=== PATIENT | male | born 1945 | race Caucasian/White ===

== ENCOUNTER 2017-03-18 07:58 | Day surgery (SDC) | payer OTHER ==
[2017-03-14 14:07] VITALS: BMI 24.1
[~2017-03-18 07:58] MED LIST: ALPRAZolam 0.25 MG TAB PO PRN; ALPRAZolam 0.5 MG TAB PO PRN; ASPIRIN 325 MG TAB PO STA; ATORVASTATIN 80 MG TAB PO STA; NITROGLYCERIN SL TABS 0.4 MG TAB SUBLINGUAL PRN; SODIUM CHLORIDE 0.9% 1,000 ML in EMPTY BAG 1 BAG IV ONE
[2017-03-18] MEDS ORDERED: SODIUM CHLORIDE 0.9% 1,000 ML IV ONE (08:13)
[2017-03-18] MEDS ORDERED: fentaNYL (PF) 50 MCG/ML 2 ML AMP ONE (09:12)
[2017-03-18] MEDS ORDERED: MIDAZOLAM 2 MG/2 ML VIAL ONE (09:12)
[2017-03-18] MEDS ORDERED: fentaNYL (PF) 50 MCG/ML 2 ML AMP IV ONE (09:15)
[2017-03-18] MEDS ORDERED: MIDAZOLAM 2 MG/2 ML VIAL IV ONE (09:16)
[2017-03-18] MEDS ORDERED: LIDOCAINE 2% INJ 20 MG/ML (20 ML MDV) ONE (09:17)
[2017-03-18] MEDS ORDERED: LIDOCAINE 2% INJ 20 MG/ML SQ ONE (09:20)
[2017-03-18] MEDS ORDERED: RX INFO: IV CONTRAST WAS GIVEN 1 EACH MISC MISCELLANE PRN (09:59)
--- NOTE | 2017-03-18 09:59 | P.PCN ---
Date of Procedure: 03/18/17 Preoperative Diagnosis: Angina pectoris, abnormal EKG Postoperative Diagnosis: Significant 2 vessel disease Procedure(s) Performed: Left heart catheterization with left ventriculography Description of Procedure: HISTORY: This is a 71-year-old gentleman with history of mixed hyperlipidemia, smoking who has been having burning epigastric and midsternal chest pain. [facility] and [facility] had previous stress tests and echocardiograms. 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 Patient is advised to have a cardiac catheterization because of ongoing symptoms and abnormal EKG. CONSENT:I have discussed the risks, benefits and alternative therapies for the above-mentioned procedure and for both sedation/analgesia as well as necessary blood product administration, if indicated, as they pertain to this patient. The patient has indicated understanding and acceptance of the risks and procedures discussed. PROCEDURE: Patient was brought to the lab in a fasting state. Patient was given some IV sedation. The right groin is infiltrated with lidocaine and right femoral artery was entered using Seldinger technique. A 6-Zimbabwean catheter was left in place and selective coronary arteriography and left ventriculography was performed. Patient tolerated the procedure well. No immediate complications were noted and patient was transferred to [facility] in a stable condition. Patient is found to have significant 2 vessel disease. Patient is waiting to be evaluated by Dr. JOSIE Bartlett for possible percutaneous intervention HEMODYNAMICS: The aortic pressure is 110/70. Left ventricle end-diastolic pressure is 12. There was no gradient across the aortic valve SELECTIVE CORONARY ARTERIOGRAPHY: LEFT MAIN: Normal length. Heavily calcified THE LEFT ANTERIOR DESCENDING CORONARY ARTERY: Heavily calcified vessel with significant disease in the midportion at the origin of the major diagonal branch. The LAD provides collaterals to the RCA. THE LEFT CIRCUMFLEX AND IS CORONARY ARTERY: Moderate caliber vessel and free of occlusive disease THE RIGHT CORONARY ARTERY: This is a dominant vessel with multiple lesions in the proximal mid and distal portions. The lesions appear to be about 95-99%. There is a sluggish filling of the PDA and PLV branches which are good in caliber LEFT VENTRICULOGRAPHY: There is a severe hypokinesis of the inferior wall including the apex. The ejection fraction close to 30%. FINAL IMPRESSION: Significant 2 vessel disease involving the mid LAD and multiple lesion in the RCA in the proximal mid and distal portions PLAN: Continuation maximal medical therapy. Revascularization either percutaneously or bypass surgery because of ongoing symptoms. PROGNOSIS: Guarded
[2017-03-18] MEDS ORDERED: SODIUM CHLORIDE 0.9% 1,000 ML IV SCH (10:00)
[2017-03-18] MEDS ORDERED: IOHEXOL 350 MG/ML 100 ML BOTTLE INJ ONE (10:01)
[2017-03-18 14:01] VITALS: RESP 16
[2017-03-18 20:24] VITALS: BP 125/68; PULSE 60; TEMP 97.7
[2017-03-19] MEDS ORDERED: ISOSORBIDE MONONITRATE ER 30 MG TAB.ER.24H PO SCH (09:00)
== END 2017-03-18 21:20 | disposition home or self-care (01) ==
LOC: CATHCVL 07:58 → 3OBS 09:40 → CATHCVL 21:20
PROVIDERS: ATTEND Internal Medicine Cardiovascular Disease
DX: I25.119 Atherosclerotic heart disease of native coronary artery with unspecified angina pectoris (principal); I25.84 Coronary atherosclerosis due to calcified coronary lesion; E78.2 Mixed hyperlipidemia; I25.2 Old myocardial infarction; K21.9 Gastro-esophageal reflux disease without esophagitis; R00.1 Bradycardia, unspecified; F17.200 Nicotine dependence, unspecified, uncomplicated; Z82.49 Family history of ischemic heart disease and other diseases of the circulatory system; Z79.82 Long term (current) use of aspirin; Z79.899 Other long term (current) drug therapy
CPT/HCPCS: 93458; 99152; 99153; C1894; C1769; J2001; J2250; Q9967; J3010

== ENCOUNTER → 2017-04-02 | Day surgery (SDC) | payer OTHER ==
[2017-04-01 11:41] VITALS: BMI 24.4
[~2017-04-02] MED LIST changes: -ALPRAZolam 0.5 MG TAB PO PRN; +ASPIRIN 325 MG TAB PO ONE; -ASPIRIN 325 MG TAB PO STA; +ATORVASTATIN 80 MG TAB PO ONE; -ATORVASTATIN 80 MG TAB PO STA; +BIVALIRUDIN 250 MG in SODIUM CHLORIDE 0.9% 50 ML IV ONE; +BIVALIRUDIN BOLUS 250 MG/50 ML IV ONE; +HEPARIN SODIUM,PORCINE/D5W PMX 25,000 UNIT in DEXTROSE/WATER 1 500ML.BAG IV ONE; +HYDROmorphone 2 MG/ML 1 ML SYRINGE ONE; +IOHEXOL 350 MG/ML 100 ML BOTTLE INJ ONE; +LIDOCAINE 2% INJ 20 MG/ML (20 ML MDV) ONE; +LIDOCAINE 2% INJ 20 MG/ML SQ ONE; +MIDAZOLAM 2 MG/2 ML VIAL IV ONE; +MIDAZOLAM 2 MG/2 ML VIAL ONE; -NITROGLYCERIN SL TABS 0.4 MG TAB SUBLINGUAL PRN; +VERAPAMIL 2.5 MG/ML 2 ML AMP ONE; +diphenhydrAMINE 50 MG/ML 1 ML VIAL IVP ONE; +diphenhydrAMINE 50 MG/ML 1 ML VIAL ONE
[2017-04-02 06:58] VITALS: BP 131/77; PULSE 52; RESP 16; TEMP 97.5
[2017-04-02] MEDS: VERAPAMIL SYRINGE (5 MG/10 ML) IV ONE ×2 (07:40→08:52)
[2017-04-02] MEDS: HYDROmorphone 2 MG/ML 1 ML SYRINGE IV ONE ×2 (07:50→08:49)
--- NOTE | 2017-04-02 23:43 | PTCA ---
DATE OF SERVICE: 04/02/2017 PROCEDURE: Percutaneous transluminal coronary angioplasty of right coronary artery. PERFORMED BY Dr. Lorenza Bartlett. CLINICAL INFORMATION: Mr. Bean Mendoza is a 71-year-old gentleman with a history of hypertension, hyperlipidemia, and recent cardiac cath performed by Dr. Martinez revealed that the RCA was subtotally occluded with sluggish distal flow. There was also a moderate LAD disease. This was a somewhat difficult flow with a lot of heavy calcification and tortuosity involving the proximal/mid RCA. Patient was seen by me in the office, brought in for the procedure electively, with the understanding that this is a fairly high-risk procedure because of tortuosity, calcification and probable chronic subtotal occlusion. Risks, benefits, options and rationale were explained. PROCEDURE NOTE: Under local anesthesia and strict aseptic precautions, a 6 Albanian introducer was placed in the right radial artery. I used a standard right Xavier guide catheter to cannulate the right coronary artery. This was a 6 Albanian catheter. I tried to advance a BMW wire under fluoroscopy guidance, but I could not cross the wire beyond the distal portion of the lesion. The proximal lesion was crossed easily, but the distal portion where there was a subtotal occlusion of the sluggish flow was unable to be crossed. In the process, patient developed chest pain, and the flow through the RCA seemed to decrease even more, although the flow was sluggish to begin with. Patient received Angiomax bolus and infusion as per protocol. However, I went ahead and advanced a 2.5 caliber, 12 mm length Trek balloon, and with this I gave one inflation. Following inflation his chest pain improved. The flow improved. I switched over to a Whisper wire and tried to advance it, but I had the same difficulty and could not cross the distal aspect of the probable subtotal lesion. I also used a Fine Cross device, and with this I was able to advance the wire just up to the lesion but could not cross it. After multiple attempts, I advised the patient that I would abandon the procedure and send him to [facility]. Hopefully he will have a better approach with a chronic total occlusion type intervention, which will be performed by Dr. Gaytan. I discussed this with the patient. The flow in the RCA had resumed to be the normal level. He was pain-free. The sheath was then very carefully sutured in. Angiomax infusion was stopped, and prior to his transfer he will be started about 20 to 25 minutes later with a heparin drip at 1000 units; however, without bolus. Saturation of the fingers of the right hand was good. Sheath was sutured. Patient received Angiomax during the procedure. A single inflation was given. The vessel remained open with sluggish flow, which was his baseline. He was sent to the extended-care stay unit and he will be transferred by [facility] ambulance to the [facility], and intervention will be performed by an business solutions analyst experienced with [employer] procedures. I discussed the details of the procedure as well as the unsuccessful nature of the procedure with the patient, his and his sister. This was an unsuccessful PCI procedure, and patient was to be transferred to [facility] with the sheath sutured in to the radial site.
== END ==
LOC: CATHCVL 06:41
PROVIDERS: ATTEND Internal Medicine Interventional Cardiology
DX: I25.10 Atherosclerotic heart disease of native coronary artery without angina pectoris (principal); I25.84 Coronary atherosclerosis due to calcified coronary lesion; I10 Essential (primary) hypertension; I77.1 Stricture of artery; R07.9 Chest pain, unspecified; I25.2 Old myocardial infarction; Z82.49 Family history of ischemic heart disease and other diseases of the circulatory system; Z87.891 Personal history of nicotine dependence; E78.2 Mixed hyperlipidemia; Z79.82 Long term (current) use of aspirin; Z79.899 Other long term (current) drug therapy
CPT/HCPCS: 92920; C1769 ×6; C1887 ×2; C1725 ×2; C1894; J2001; J2250; J1170; J1200; Q9967; J1644; J0583

== ENCOUNTER 2017-08-19 22:17 | Observation (INO) | payer OTHER ==
--- NOTE | 2017-08-19 22:26 | ED ---
Chest Pain HPI - General Stated Complaint: chest pain Time Seen by Provider: 08/19/17 22:17 Source: patient, EMS, RN notes reviewed Mode of arrival: EMS - History of Present Illness Initial Comments: Is a 72-year-old male with a history of heart disease 5 stents he states the pain was dull for/10 severity currently about 1 hour prior to admission. He did come in by EMS. He was given 324 mg of aspirin the pain did resolve. He currently is symptom free he did have 2 episodes of brief syncope. No fevers chills nausea vomiting sweats cough or other symptoms . Patient does state this several days ago he did go hunting with his son and grandson and may have overdone it. MD Complaint: chest pain, other - Related Data Home Medications Medication Instructions Recorded Confirmed Isosorbide Mononitrate [Isosorbide 30 mg PO DAILY 03/14/17 08/19/17 Mononitrate ER] Ranitidine HCl [Zantac] 150 mg PO DAILY PRN 03/14/17 08/19/17 Atorvastatin (Unknown Dose) 0.5 tab PO DAILY 08/19/17 08/19/17 Calcium Carbonate [Calcium] 600 mg PO DAILY 08/19/17 08/19/17 Cholecalciferol [Vitamin D3] 1,000 unit PO DAILY 08/19/17 08/19/17 Clopidogrel Bisulfate [Plavix] 75 mg PO DAILY 08/19/17 08/19/17 Metoprolol Tartrate [Lopressor] 12.5 mg PO DAILY 08/19/17 08/19/17 Allergies Allergy/AdvReac Type Severity Reaction Status Date / Time No Known Allergies Allergy Verified 08/19/17 23:07 Review of Systems ROS Statement: Those systems with pertinent positive or pertinent negative responses have been documented in the HPI. ROS Other: All systems not noted in ROS Statement are negative. EKG Findings - EKG Results: EKG: interpreted by KAI, sinus rhythm (Sinus rhythm rate of 59. Interval 156 QRS 128 QT cyst QTc is 472/467 left axis deviation right bundle branch block lateral and inferior evidence of old infarcts no acute changes.) Past Medical History Past Medical History: GERD/Reflux, Hypertension, Myocardial Infarction ([place]) Additional Past Medical History / Comment(s): crohns, see Dr Martinez H&P, hx migraines, sinus congestion, equilibrium problem and ringing in ears Last Myocardial Infarction Date:: 01/2015 History of Any Multi-Drug Resistant Organisms: None Reported Past Surgical History: Appendectomy, Heart Catheterization, Tonsillectomy Additional Past Surgical History / Comment(s): kasey cataracts, Additional Past Anesthesia/Blood Transfusion Reaction / Comment(s): vertigo. mother had some problem with anesthesia-not sure what Smoking Status: Former smoker - Past Family History Mother Family Medical History: No Reported History General Exam - General Exam Comments Initial Comments: This is a well-developed well-nourished awake alert oriented times 3 male General appearance: alert, in no apparent distress Head exam: Present: atraumatic, normocephalic, normal inspection Eye exam: Present: normal appearance, PERRL, EOMI. Absent: scleral icterus, conjunctival injection, periorbital swelling ENT exam: Present: normal exam, mucous membranes moist Neck exam: Present: normal inspection. Absent: tenderness, meningismus, lymphadenopathy Respiratory exam: Present: normal lung sounds bilaterally. Absent: respiratory distress, wheezes, rales, rhonchi, stridor Cardiovascular Exam: Present: regular rate, normal rhythm, normal heart sounds. Absent: systolic murmur, diastolic murmur, rubs, gallop, clicks GI/Abdominal exam: Present: soft, normal bowel sounds. Absent: distended, tenderness, guarding, rebound, rigid Extremities exam: Present: normal inspection, full ROM, normal capillary refill. Absent: tenderness, pedal edema, joint swelling, calf tenderness Back exam: Present: normal inspection Neurological exam: Present: alert, oriented X3, CN II-XII intact Psychiatric exam: Present: normal affect, normal mood Skin exam: Present: warm, dry, intact, normal color. Absent: rash Course Vital Signs 08/19/17 08/19/17 22:24 23:40 Temperature 97.0 F L 97.2 F L Pulse Rate 64 62 Respiratory 18 18 Rate Blood Pressure 111/59 104/52 O2 Sat by Pulse 95 96 Oximetry - Reevaluation(s) Reevaluation #1: 08/19/17 23:42 Patient did complain of recurrent chest pain for/10 severity midsternal no tenderness palpation of the chest wall. Repeat EKG showed sinus rhythm of 58 SC interval 158 QRS duration 126 QT since QTC of 490/41 left axis deviation a bundle-branch block old inferior changes no change from the earlier EKG at 22: 23 PM Chest Pain MDM - MDM I did review the imaging and report no acute findings. Patient did have recurrent chest pain he will be admitted for evaluation of chest pain and unstable angina. I did discuss the case with Dr. Schuster's service Critical Care Time Critical Care Time: Yes Critical Care Time: 31 minutes of critical care time which includes monitoring the EMS run and discussed with paramedics. History physical labs x-rays of the patient reevaluation patient several occasions. Discussed with the patient family. The admitting service admission orders and documentation of the above. Disposition Clinical Impression: Chest pain, Unstable angina pectoris Disposition: ADMITTED IP TO THIS HOSP Condition: Stable Referrals: Nino Izaguirre DO [Primary Care Provider] - 1-2 days
[2017-08-19 22:37] LABS: Basophils % (A) 0 %; CHCM 34.5; Eosinophils # (A) 0.1 k/uL (0-0.7); Eosinophils % (A) 1 %; HCT 42.9 % (39.0-53.0); HDW 2.43; HGB 14.7 gm/dL (13.0-17.5); Luc % (Auto) 1; Lymphocytes # (A) 1.6 k/uL (1.0-4.8); Lymphocytes % (A) 9 %; MCH 32.9 pg (25.0-35.0); MCHC 34.2 g/dL (31.0-37.0); MCV 96.2 fL (80.0-100.0); Mean Platelet Volume 7.4; Monocytes # (A) 0.7 k/uL (0-1.0); Monocytes % (A) 4 %; Neutrophils # (A) 14.1 k/uL (1.3-7.7); Neutrophils % (A) 85 %; RBC 4.46 m/uL (4.30-5.90); RDW 14.5 % (11.5-15.5); WBC 16.5 k/uL (3.8-10.6); WBC (Perox) 17.43
[2017-08-19 22:51] LABS: INR 1.1 (<1.2); Prothrombin Time 10.9 sec (9.0-12.0)
[2017-08-19 22:56] LABS: ALT 54 U/L (21-72); AST 46 U/L (17-59); Alkaline Phosphatase 100 U/L (38-126); Anion Gap 10 mmol/L; Blood Urea Nitrogen 18 mg/dL (9-20); Calcium 9.5 mg/dL (8.4-10.2); Carbon Dioxide 23 mmol/L (22-30); Chloride 104 mmol/L (98-107); Glucose 100 mg/dL (74-99); Magnesium 1.9 mg/dL (1.6-2.3); Non-African American GFR(MDRD) >60 (>60 ml/min/1.73 sqM); Potassium 4.1 mmol/L (3.5-5.1); Sodium 137 mmol/L (137-145); Total Bilirubin 1.4 mg/dL (0.2-1.3); Total Protein 7.4 g/dL (6.3-8.2)
[2017-08-19 23:01] LABS: Creatine Kinase 381 U/L (55-170)
--- NOTE | 2017-08-19 23:09 | XR ---
EXAM: XR Chest, 2 Views CLINICAL HISTORY: Reason: Chest Pain TECHNIQUE: Frontal and lateral views of the chest. COMPARISON: Chest x-ray 05/23/15 FINDINGS: Lungs: Hyperinflated lungs. Minimal left basilar opacities, likely atelectasis. Lungs are otherwise clear Pleural space: Unremarkable. No pneumothorax. Heart: Unremarkable. No cardiomegaly. Mediastinum: Unremarkable. Bones/joints: Unchanged compression deformity of a lower thoracic vertebrae IMPRESSION: 1. Hyperinflated lungs. 2. Minimal left basilar opacities, likely atelectasis.
[2017-08-19 23:13] LABS: Troponin I <0.012 ng/mL (0.000-0.034)
[2017-08-19 23:29] LABS: Creatine Kinase MB 6.6 ng/mL (0.0-2.4)
[2017-08-19] MEDS ORDERED: NITROGLYCERIN OINT 1 INCH/GM PACKET TOPICAL STA (23:39)
[2017-08-19] MEDS ORDERED: HEPARIN SODIUM,PORCINE 5,000 UNIT/ML 1 ML VIAL IV ONE (23:39)
[2017-08-19] MEDS ORDERED: HEPARIN SODIUM,PORCINE/D5W PMX 25,000 UNIT in DEXTROSE/WATER 1 500ML.BAG IV SCH (23:45)
[2017-08-19] MEDS ORDERED: SODIUM CHLORIDE 0.9% 1,000 ML IV SCH (23:45)
[2017-08-19] MEDS ORDERED: NITROGLYCERIN SL TABS 0.4 MG TAB SUBLINGUAL PRN (23:49)
[2017-08-19] MEDS ORDERED: FAMOTIDINE 20 MG TAB PO PRN (23:51)
[2017-08-20 01:12] VITALS: BMI 24.4
[2017-08-20 05:13] LABS: Creatine Kinase 298 U/L (55-170)
[2017-08-20 05:16] LABS: Cholesterol 104 mg/dL (<200); HDL Cholesterol 40 mg/dL (40-60)
[2017-08-20 05:26] LABS: Troponin I <0.012 ng/mL (0.000-0.034)
[2017-08-20 05:28] LABS: Creatine Kinase MB 5.5 ng/mL (0.0-2.4)
[2017-08-20] MEDS ORDERED: NITROGLYCERIN OINT 1 INCH/GM PACKET TOPICAL SCH (06:00)
[2017-08-20] MEDS ORDERED: CHOLECALCIFEROL 1,000 UNIT TAB PO SCH (09:00)
[2017-08-20] MEDS ORDERED: CLOPIDOGREL 75 MG TAB PO SCH (09:00)
[2017-08-20] MEDS ORDERED: ASPIRIN 325 MG TAB PO SCH (09:00)
[2017-08-20] MEDS ORDERED: METOPROLOL TARTRATE 12.5 MG TAB PO SCH (09:00)
[2017-08-20] MEDS ORDERED: ISOSORBIDE MONONITRATE ER 30 MG TAB.ER.24H PO SCH (09:00)
[2017-08-20] MEDS ORDERED: CALCIUM CARBONATE 500 MG CHEWABLE PO SCH (09:00)
[2017-08-20] MEDS ORDERED: ISOSORBIDE MONONITRATE ER 15 MG TAB PO SCH (09:45)
[2017-08-20] MEDS ORDERED: LOSARTAN 25 MG TAB PO SCH (09:45)
--- NOTE | 2017-08-20 09:45 | P.CRDCN ---
History of Present Illness History of present illness: Patient interviewed and examined Admitted with syncope, 2 spells suggestive of neurocardiogenic syncope. Associated with nausea and sweating brief and people witnessed his episode and did not say that he had any convulsions. He has had similar episodes in the past. He admits to not eating well and drinking enough on that particular day he did have a few beers. CPK mildly elevated troponins are normal left radical systolic function moderately reduced at from 35% ICD was discussed with him by Dr. Martinez and he still wants to think about it. I discussed several ICD implant in ischemic cardio myopathy At this time I would reduce the dose of Imdur to 15 mg by mouth daily and add losartan 12.5 g by mouth to his current regimen. He's been instructed to drink lots of fluids. It seems based upon his prior history that he does have a tendency for neurocardiogenic syncope and his medications and had to be adjusted in the future if he cannot tolerate this combination. I would also recommend ICD implantation and I made this very clear to the patient and explained the reasons why I'm making such a recommendation. Continue monitoring on telemetry for any ambient arrhythmias When he gets discharged he should see Dr. Martinez in the next few days See full dictation by nurse practitioner Past Medical History Past Medical History: Coronary Artery Disease (CAD), GERD/Reflux, Hypertension, Myocardial Infarction ([place]) Additional Past Medical History / Comment(s): crohns, hx migraines, sinus congestion, equilibrium problem and ringing in ears Last Myocardial Infarction Date:: 01/2015 History of Any Multi-Drug Resistant Organisms: None Reported Past Surgical History: Appendectomy, Heart Catheterization, Heart Catheterization With Stent, Tonsillectomy Additional Past Surgical History / Comment(s): kasey cataracts, 5 stents Additional Past Anesthesia/Blood Transfusion Reaction / Comment(s): vertigo. mother had some problem with anesthesia-not sure what Date of Last Stent Placement:: 04/02/2017 Past Psychological History: Anxiety Smoking Status: Former smoker Past Alcohol Use History: Occasional Additional Past Alcohol Use History / Comment(s): quit smoking 20 yrs ago, smoked for 40 yrs Past Drug Use History: Marijuana - Past Family History Mother Family Medical History: No Reported History Medications and Allergies Home Medications Medication Instructions Recorded Confirmed Type Isosorbide Mononitrate [Isosorbide 30 mg PO DAILY 03/14/17 08/19/17 History Mononitrate ER] Ranitidine HCl [Zantac] 150 mg PO DAILY PRN 03/14/17 08/19/17 History Atorvastatin (Unknown Dose) 0.5 tab PO DAILY 08/19/17 08/19/17 History Calcium Carbonate [Calcium] 600 mg PO DAILY 08/19/17 08/19/17 History Cholecalciferol [Vitamin D3] 1,000 unit PO DAILY 08/19/17 08/19/17 History Clopidogrel Bisulfate [Plavix] 75 mg PO DAILY 08/19/17 08/19/17 History Metoprolol Tartrate [Lopressor] 12.5 mg PO DAILY 08/19/17 08/19/17 History Allergies Allergy/AdvReac Type Severity Reaction Status Date / Time No Known Allergies Allergy Verified 08/19/17 23:07 Physical Exam Vitals: Vital Signs Temp Pulse Pulse Pulse Resp BP BP 08/20/17 08:00 16 08/20/17 07:35 97.8 F 51 L 16 112/53 08/20/17 03:53 53 L 18 08/20/17 03:06 97.8 F 55 L 18 102/59 08/20/17 01:24 48 L 18 08/20/17 00:41 61 18 119/57 08/19/17 23:40 97.2 F L 62 18 104/52 08/19/17 22:24 97.0 F L 64 18 111/59 Pulse Ox 08/20/17 08:00 08/20/17 07:35 93 L 08/20/17 03:53 08/20/17 03:06 94 L 08/20/17 01:24 08/20/17 00:41 97 08/19/17 23:40 96 08/19/17 22:24 95 Intake and Output 08/19/17 08/20/17 08/20/17 22:59 06:59 14:59 Intake Total 133.985 Balance 133.985 Intake: Intake, IV Titration 133.985 Amount Heparin Sodium,Porcine/ 133.985 D5w Pmx 25,000 unit In Dextrose/Water 1 500ml. bag @ 12 UNITS/KG/HR 19. 05 mls/hr IV .Q24H [facility] Rx #:[id number] Other: Voiding Method Toilet Toilet # Voids 2 Weight 79.379 kg 79.379 kg Results 08/19/17 22:30 08/19/17 22:30 Cardiac Enzymes 08/19/17 08/19/17 08/20/17 Range/Units 22:30 22:30 04:33 AST 46 (17-59) U/L CK-MB (CK-2) 6.6 H* 5.5 H* (0.0-2.4) ng/mL Troponin I <0.012 <0.012 (0.000-0.034) ng/mL Coagulation 08/19/17 08/20/17 Range/Units 22:30 06:31 PT 10.9 (9.0-12.0) sec APTT 25.0 41.3 H (22.0-30.0) sec Lipids 08/20/17 Range/Units 04:33 Triglycerides 31 (<150) mg/dL Cholesterol 104 (<200) mg/dL HDL Cholesterol 40 (40-60) mg/dL CBC 08/19/17 Range/Units 22:30 WBC 16.5 H (3.8-10.6) k/uL RBC 4.46 (4.30-5.90) m/uL Hgb 14.7 (13.0-17.5) gm/dL Hct 42.9 (39.0-53.0) % Plt Count 185 (150-450) k/uL Comprehensive Metabolic Panel 08/19/17 Range/Units 22:30 Sodium 137 (137-145) mmol/L Potassium 4.1 (3.5-5.1) mmol/L Chloride 104 (98-107) mmol/L Carbon Dioxide 23 (22-30) mmol/L BUN 18 (9-20) mg/dL Creatinine 0.80 (0.66-1.25) mg/dL Glucose 100 H (74-99) mg/dL Calcium 9.5 (8.4-10.2) mg/dL AST 46 (17-59) U/L ALT 54 (21-72) U/L Alkaline Phosphatase 100 (38-126) U/L Total Protein 7.4 (6.3-8.2) g/dL Albumin 4.0 (3.5-5.0) g/dL Current Medications Generic Name Dose Route Start Last Admin Trade Name Freq PRN Reason Stop Dose Admin Aspirin 325 mg 08/20/17 09:00 Aspirin PO DAILY [facility] Calcium Carbonate/Glycine 500 mg 08/20/17 09:00 Tums PO DAILY [facility] Cholecalciferol 1,000 unit 08/20/17 09:00 Vitamin D3 PO DAILY [facility] Clopidogrel Bisulfate 75 mg 08/20/17 09:00 Plavix PO DAILY [facility] Famotidine 20 mg 08/19/17 23:51 Pepcid PO DAILY PRN gerd Heparin Sodium/Dextrose 25,000 500 mls @ 19.05 mls/hr 08/19/17 23:45 07:01 unit/ IV Solution IV 13.98 units/kg/hr .Q24H [facility] 22.2 mls/hr Protocol Titration 12 UNITS/KG/HR Sodium Chloride 1,000 mls @ 20 mls/hr 08/19/17 23:45 08/20/17 00:00 Saline 0.9% IV 20 mls/hr .Q24H [facility] Administration Metoprolol Tartrate 12.5 mg 08/20/17 09:00 Lopressor PO DAILY [facility] Nitroglycerin 0.4 mg 08/19/17 23:49 Nitrostat SUBLINGUAL Q5M PRN Chest Pain Intake and Output 08/19/17 08/20/17 08/20/17 22:59 06:59 14:59 Intake Total 133.985 Balance 133.985 Intake: Intake, IV Titration 133.985 Amount Heparin Sodium,Porcine/ 133.985 D5w Pmx 25,000 unit In Dextrose/Water 1 500ml. bag @ 12 UNITS/KG/HR 19. 05 mls/hr IV .Q24H [facility] Rx #:[id number] Other: Voiding Method Toilet Toilet # Voids 2 Weight 79.379 kg 79.379 kg 08/19/17 22:30 08/19/17 22:30
--- NOTE | 2017-08-20 11:05 | P.CRDCN ---
History of Present Illness Consult date: 08/20/17 History of present illness: This is a 72-year-old male. Past medical history significant for multivessel CAD with ischemic cardiomyopathy, mixed hyperlipidemia, gastroesophageal reflux disease and hypertension. Patient presents with complaints of syncope. 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 He states he was incontinent of urine during this episode and witnesses said he did not have any convulsions. He had been drinking beer. He states the day prior he had been out hunting all day and was not eating or drinking as much as he probably should've been. He states he has had episodes like this in the past. He recently saw Dr. Martinez in the office in late July. At that time he was recommended to have a 24-hour Holter monitor as well as AICD placement for his ischemic cardiomyopathy. At the present time he denies chest pain, shortness of breath, dizziness, palpitations or nausea or vomiting. EKG done shows sinus mechanism with a right bundle branch block, rate of 58 beats per minute. When compared with old EKG this appears consistent. Troponins are normal x 2. With elevated CK. Chest x-ray showed hyperinflated lungs with minimal left basilar opacities, likely atelectasis. Most recent echo dated 03/12/2017 indicates left ventricular function moderately decreased ejection fraction 40%. There is hypokinesis of the inferior wall from the base to the apex. There is hypokinesis of the posterior wall from the base to the mid wall. Remainder of the left ventricle functions normally. There is moderate asymmetric septal hypertrophy. There is mild mitral regurgitation. Aortic valve is mildly calcified with mild to moderate aortic regurgitation. Review of Systems Extensive review of systems performed, negative except mentioned in HPI. Past Medical History Past Medical History: Coronary Artery Disease (CAD), GERD/Reflux, Hypertension, Myocardial Infarction (VT) Additional Past Medical History / Comment(s): crohns, hx migraines, sinus congestion, equilibrium problem and ringing in ears Last Myocardial Infarction Date:: 01/2015 History of Any Multi-Drug Resistant Organisms: None Reported Past Surgical History: Appendectomy, Heart Catheterization, Heart Catheterization With Stent, Tonsillectomy Additional Past Surgical History / Comment(s): kasey cataracts, 5 stents Additional Past Anesthesia/Blood Transfusion Reaction / Comment(s): vertigo. mother had some problem with anesthesia-not sure what Date of Last Stent Placement:: 04/02/2017 Past Psychological History: Anxiety Smoking Status: Former smoker Past Alcohol Use History: Occasional Additional Past Alcohol Use History / Comment(s): quit smoking 20 yrs ago, smoked for 40 yrs Past Drug Use History: Marijuana - Past Family History Mother Family Medical History: No Reported History Medications and Allergies Home Medications Medication Instructions Recorded Confirmed Type Ranitidine HCl [Zantac] 150 mg PO DAILY PRN 03/14/17 08/19/17 History Calcium Carbonate [Calcium] 600 mg PO DAILY 08/19/17 08/19/17 History Cholecalciferol [Vitamin D3] 1,000 unit PO DAILY 08/19/17 08/19/17 History Clopidogrel Bisulfate [Plavix] 75 mg PO DAILY 08/19/17 08/19/17 History Atorvastatin [Lipitor] 40 mg PO DAILY 08/20/17 08/20/17 History Isosorbide Mononitrate ER [Imdur] 15 mg PO DAILY #30 tab 08/20/17 Rx Losartan [Cozaar] 12.5 mg PO DAILY #30 tab 08/20/17 Rx Metoprolol Tartrate 12.5 mg PO BID #30 tab 08/20/17 Rx Allergies Allergy/AdvReac Type Severity Reaction Status Date / Time No Known Allergies Allergy Verified 08/19/17 23:07 Physical Exam Vitals: Vital Signs Temp Pulse Pulse Pulse Pulse Resp BP 08/20/17 10:00 62 08/20/17 08:00 16 08/20/17 07:35 97.8 F 51 L 16 08/20/17 03:53 53 L 18 08/20/17 03:06 97.8 F 55 L 18 08/20/17 01:24 48 L 18 08/20/17 00:41 61 18 119/57 08/19/17 23:40 97.2 F L 62 18 104/52 08/19/17 22:24 97.0 F L 64 18 111/59 BP Pulse Ox 08/20/17 10:00 08/20/17 08:00 08/20/17 07:35 112/53 93 L 08/20/17 03:53 08/20/17 03:06 102/59 94 L 08/20/17 01:24 08/20/17 00:41 97 08/19/17 23:40 96 08/19/17 22:24 95 Intake and Output 08/19/17 08/20/17 08/20/17 22:59 06:59 14:59 Intake Total 133.985 Balance 133.985 Intake: Intake, IV Titration 133.985 Amount Heparin Sodium,Porcine/ 133.985 D5w Pmx 25,000 unit In Dextrose/Water 1 500ml. bag @ 12 UNITS/KG/HR 19. 05 mls/hr IV .Q24H [facility] Rx #:[id number] Other: Voiding Method Toilet Toilet # Voids 2 Weight 79.379 kg 79.379 kg GENERAL: This is a 72-year-old male in no apparent distress at the time of my examination. HEENT: Head is atraumatic, normocephalic. Pupils are equal, round. Sclerae anicteric. Conjunctivae are clear. Mucous membranes of the mouth are moist. Neck is supple. There is no jugular venous distention. No carotid bruit is heard. LUNGS: Clear to auscultation no wheezes, rales or rhonchi. No chest wall tenderness is noted on palpation or with deep breathing. HEART: Regular rate and rhythm with systolic ejection murmur at the base, no rubs or gallops. S1 and S2 heard. ABDOMEN: Soft, nontender. Bowel sounds are heard. No organomegaly noted. EXTREMITIES: 2+ peripheral pulses with no evidence of peripheral edema and no calf tenderness noted. NEUROLOGIC: Patient is awake, alert and oriented x3. Results 08/19/17 22:30 08/19/17 22:30 Cardiac Enzymes 08/19/17 08/19/17 08/20/17 Range/Units 22:30 22:30 04:33 AST 46 (17-59) U/L CK-MB (CK-2) 6.6 H* 5.5 H* (0.0-2.4) ng/mL Troponin I <0.012 <0.012 (0.000-0.034) ng/mL Coagulation 08/19/17 08/20/17 Range/Units 22:30 06:31 PT 10.9 (9.0-12.0) sec APTT 25.0 41.3 H (22.0-30.0) sec Lipids 08/20/17 Range/Units 04:33 Triglycerides 31 (<150) mg/dL Cholesterol 104 (<200) mg/dL HDL Cholesterol 40 (40-60) mg/dL CBC 08/19/17 Range/Units 22:30 WBC 16.5 H (3.8-10.6) k/uL RBC 4.46 (4.30-5.90) m/uL Hgb 14.7 (13.0-17.5) gm/dL Hct 42.9 (39.0-53.0) % Plt Count 185 (150-450) k/uL Comprehensive Metabolic Panel 08/19/17 Range/Units 22:30 Sodium 137 (137-145) mmol/L Potassium 4.1 (3.5-5.1) mmol/L Chloride 104 (98-107) mmol/L Carbon Dioxide 23 (22-30) mmol/L BUN 18 (9-20) mg/dL Creatinine 0.80 (0.66-1.25) mg/dL Glucose 100 H (74-99) mg/dL Calcium 9.5 (8.4-10.2) mg/dL AST 46 (17-59) U/L ALT 54 (21-72) U/L Alkaline Phosphatase 100 (38-126) U/L Total Protein 7.4 (6.3-8.2) g/dL Albumin 4.0 (3.5-5.0) g/dL Current Medications Generic Name Dose Route Start Last Admin Trade Name Freq PRN Reason Stop Dose Admin Aspirin 325 mg 08/20/17 09:00 08/20/17 10:02 Aspirin PO 325 mg DAILY [facility] Administration Calcium Carbonate/Glycine 500 mg 08/20/17 09:00 08/20/17 10:01 Tums PO 500 mg DAILY [facility]ADD Administration Cholecalciferol 1,000 unit 08/20/17 09:00 08/20/17 10:02 Vitamin D3 PO 1,000 unit DAILY [facility]ADD Administration Clopidogrel Bisulfate 75 mg 08/20/17 09:00 08/20/17 10:02 Plavix PO 75 mg DAILY [facility]ADD Administration Famotidine 20 mg 08/19/17 23:51 Pepcid PO DAILY PRN gerd Sodium Chloride 1,000 mls @ 20 mls/hr 08/19/17 23:45 08/20/17 00:00 Saline 0.9% IV 20 mls/hr .Q24H [facility] Administration Isosorbide Mononitrate 15 mg 08/20/17 09:45 Imdur PO DAILY [facility]ADD Losartan Potassium 12.5 mg 08/20/17 09:45 Cozaar PO DAILY [facility]ADD Metoprolol Tartrate 12.5 mg 08/20/17 09:00 08/20/17 10:01 Lopressor PO 12.5 mg DAILY [facility]ADD Administration Nitroglycerin 0.4 mg 08/19/17 23:49 Nitrostat SUBLINGUAL Q5M PRN Chest Pain Intake and Output 08/19/17 08/20/17 08/20/17 22:59 06:59 14:59 Intake Total 133.985 Balance 133.985 Intake: Intake, IV Titration 133.985 Amount Heparin Sodium,Porcine/ 133.985 D5w Pmx 25,000 unit In Dextrose/Water 1 500ml. bag @ 12 UNITS/KG/HR 19. 05 mls/hr IV .Q24H [facility] Rx #:[id number] Other: Voiding Method Toilet Toilet # Voids 2 Weight 79.379 kg 79.379 kg 08/19/17 22:30 08/19/17 22:30 EKG Interpretations (text) EKG indicates sinus mechanism with a right bundle branch block. Assessment and Plan Plan: ASSESSMENT 1. Syncope 2. Ischemic cardiomyopathy 3. Chronic stable CAD 4. Bradycardia PLAN Decrease Imdur 15 mg by mouth daily and add losartan 12.5 mg daily. He's been instructed to drink lots of fluids and avoid alcohol consumption. We again recommended ICD implantation and answered extensive questions to the patient as to why this recommendations being made. We will apply 24-hour Holter monitor prior to discharge. He can see Dr. Martinez in the next few days. Thank you kindly for this consultation. Nurse Practitioner note has been reviewed, I agree with a documented findings and plan of care. Patient was seen and examined.
[2017-08-20 12:08] LABS: Troponin I 0.016 ng/mL (0.000-0.034)
[2017-08-20 12:12] LABS: Creatine Kinase MB 5.5 ng/mL (0.0-2.4)
[2017-08-20 12:25] VITALS: BP 114/58; PULSE 54; RESP 18; TEMP 98.1
--- NOTE | 2017-08-20 14:14 | P.DS ---
Providers Date of admission: 08/19/17 23:49 Attending physician: Fidelia Schuster Consults: 08/19/17 23:49 Consult Physician Urgent Consulting Provider: Tariq Greene Consult Reason/Comments: Chest pain Do you want consulting provider notified?: Yes Primary care physician: Nino Izaguirre [facility] Course: Please refer to my history of present illness Patient Condition at Discharge: Stable Plan - Discharge Summary New Discharge Prescriptions: New Isosorbide Mononitrate ER [Imdur] 15 mg PO DAILY #30 tab Losartan [Cozaar] 12.5 mg PO DAILY #30 tab Metoprolol Tartrate 12.5 mg PO BID #30 tab Continue Clopidogrel Bisulfate [Plavix] 75 mg PO DAILY Discontinued Isosorbide Mononitrate [Isosorbide Mononitrate ER] 30 mg PO DAILY No Action Ranitidine HCl [Zantac] 150 mg PO DAILY PRN PRN Reason: gerd Cholecalciferol [Vitamin D3] 1,000 unit PO DAILY Calcium Carbonate [Calcium] 600 mg PO DAILY Atorvastatin [Lipitor] 40 mg PO DAILY Discharge Medication List Ranitidine HCl [Zantac] 150 mg PO DAILY PRN 03/14/17 [History] Calcium Carbonate [Calcium] 600 mg PO DAILY 08/19/17 [History] Cholecalciferol [Vitamin D3] 1,000 unit PO DAILY 08/19/17 [History] Clopidogrel Bisulfate [Plavix] 75 mg PO DAILY 08/19/17 [History] Atorvastatin [Lipitor] 40 mg PO DAILY 08/20/17 [History] Isosorbide Mononitrate ER [Imdur] 15 mg PO DAILY #30 tab 08/20/17 [Rx] Losartan [Cozaar] 12.5 mg PO DAILY #30 tab 08/20/17 [Rx] Metoprolol Tartrate 12.5 mg PO BID #30 tab 08/20/17 [Rx] Follow up Appointment(s)/Referral(s): Andriy Martinez MD [STAFF PHYSICIAN] - 3 Days Nino Izaguirre DO [Primary Care Provider] - 3 Days Patient Instructions/Handouts: Chest Pain (GEN) Discharge Disposition: HOME SELF-CARE
--- NOTE | 2017-08-20 14:14 | P.HPIM ---
History of Present Illness This is a 72-year-old male. Past medical history significant for multivessel CAD with ischemic cardiomyopathy, mixed hyperlipidemia, gastroesophageal reflux disease and hypertension. Patient presents with complaints of syncope. 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 He states he was incontinent of urine during this episode and witnesses said he did not have any convulsions. He had been drinking beer. He states the day prior he had been out hunting all day and was not eating or drinking as much as he probably should've been. He states he has had episodes like this in the past. He recently saw Dr. Martinez in the office in late July. At that time he was recommended to have a 24-hour Holter monitor as well as AICD placement for his ischemic cardiomyopathy. At the present time he denies chest pain, shortness of breath, dizziness, palpitations or nausea or vomiting. Patient had a significant coronary atherosclerotic vascular disease has 9 stents in the past patient is on metoprolol and was started on imbued since starting him due to patient had multiple episodes of lightheadedness and syncopal syncope in the past. Patient ejection fraction is 35% and the patient was a evaluated by cardiology here patient will be started on low-dose of losartan and metoprolol will be continued since the patient was having issues with lightheadedness and syncopes because of which cardiology is according 1 today and recommending to decrease isosorbide mononitrate and the started him on losartan 12.5 and continue 12.5 metoprolol twice a day patient has mild sinus bradycardia patient will receive Holter monitor and will be discharged. Review of Systems REVIEW OF SYSTEMS: CONSTITUTIONAL: No fever, no malaise, no fatigue. HEENT: No recent visual problems or hearing problems. Denied any sore throat. CARDIOVASCULAR: No chest pain, orthopnea, PND, no palpitations, PULMONARY: No shortness of breath, no cough, no hemoptysis. GASTROINTESTINAL: No diarrhea, no nausea, no vomiting, no abdominal pain. Normoactive bowel sounds. NEUROLOGICAL: No headaches, no weakness, no numbness. HEMATOLOGICAL: Denies any bleeding or petechiae. GENITOURINARY: Denies any burning micturition, frequency, or urgency. MUSCULOSKELETAL/RHEUMATOLOGICAL: Denies any joint pain, swelling, or any muscle pain. ENDOCRINE: Denies any polyuria or polydipsia. The rest of the 14-point review of systems is negative. Past Medical History Past Medical History: Coronary Artery Disease (CAD), GERD/Reflux, Hypertension, Myocardial Infarction (CT) Additional Past Medical History / Comment(s): crohns, hx migraines, sinus congestion, equilibrium problem and ringing in ears Last Myocardial Infarction Date:: 01/2015 History of Any Multi-Drug Resistant Organisms: None Reported Past Surgical History: Appendectomy, Heart Catheterization, Heart Catheterization With Stent, Tonsillectomy Additional Past Surgical History / Comment(s): kasey cataracts, 5 stents Additional Past Anesthesia/Blood Transfusion Reaction / Comment(s): vertigo. mother had some problem with anesthesia-not sure what Date of Last Stent Placement:: 04/02/2017 Past Psychological History: Anxiety Smoking Status: Former smoker Past Alcohol Use History: Occasional Additional Past Alcohol Use History / Comment(s): quit smoking 20 yrs ago, smoked for 40 yrs Past Drug Use History: Marijuana - Past Family History Mother Family Medical History: No Reported History Medications and Allergies Home Medications Medication Instructions Recorded Confirmed Type Ranitidine HCl [Zantac] 150 mg PO DAILY PRN 03/14/17 08/19/17 History Calcium Carbonate [Calcium] 600 mg PO DAILY 08/19/17 08/19/17 History Cholecalciferol [Vitamin D3] 1,000 unit PO DAILY 08/19/17 08/19/17 History Clopidogrel Bisulfate [Plavix] 75 mg PO DAILY 08/19/17 08/19/17 History Atorvastatin [Lipitor] 40 mg PO DAILY 08/20/17 08/20/17 History Isosorbide Mononitrate ER [Imdur] 15 mg PO DAILY #30 tab 08/20/17 Rx Allergies Allergy/AdvReac Type Severity Reaction Status Date / Time No Known Allergies Allergy Verified 08/19/17 23:07 Physical Exam Vitals: Vital Signs Temp Pulse Pulse Pulse Pulse Resp BP 08/20/17 12:24 98.1 F 54 L 18 08/20/17 10:00 62 08/20/17 08:00 16 08/20/17 07:35 97.8 F 51 L 16 08/20/17 03:53 53 L 18 08/20/17 03:06 97.8 F 55 L 18 08/20/17 01:24 48 L 18 08/20/17 00:41 61 18 119/57 08/19/17 23:40 97.2 F L 62 18 104/52 08/19/17 22:24 97.0 F L 64 18 111/59 BP Pulse Ox 08/20/17 12:24 114/58 96 08/20/17 10:00 08/20/17 08:00 08/20/17 07:35 112/53 93 L 08/20/17 03:53 08/20/17 03:06 102/59 94 L 08/20/17 01:24 08/20/17 00:41 97 08/19/17 23:40 96 08/19/17 22:24 95 Intake and Output 08/19/17 08/20/17 08/20/17 22:59 06:59 14:59 Intake Total 133.985 Balance 133.985 Intake: Intake, IV Titration 133.985 Amount Heparin Sodium,Porcine/ 133.985 D5w Pmx 25,000 unit In Dextrose/Water 1 500ml. bag @ 12 UNITS/KG/HR 19. 05 mls/hr IV .Q24H [facility] Rx #:[id number] Other: Voiding Method Toilet Toilet # Voids 2 Weight 79.379 kg 79.379 kg 79.379 kg Patient Weight 08/21/17 06:59 Weight 79.379 kg PHYSICAL EXAMINATION: GENERAL: The patient is alert and oriented x3, not in any acute distress. Well developed, well nourished. HEENT: Pupils are round and equally reacting to light. EOMI. No scleral icterus. No conjunctival pallor. Normocephalic, atraumatic. No pharyngeal erythema. No thyromegaly. CARDIOVASCULAR: S1 and S2 present. No murmurs, rubs, or gallops. PULMONARY: Chest is clear to auscultation, no wheezing or crackles. ABDOMEN: Soft, nontender, nondistended, normoactive bowel sounds. No palpable organomegaly. MUSCULOSKELETAL: No joint swelling or deformity. EXTREMITIES: No cyanosis, clubbing, or pedal edema. NEUROLOGICAL: Gross neurological examination did not reveal any focal deficits. SKIN: No rashes. Results CBC & Chem 7: 08/19/17 22:30 08/19/17 22:30 Labs: Abnormal Lab Results - Last 24 Hours (Table) 08/19/17 08/19/17 08/19/17 Range/Units 22:30 22:30 22:30 WBC 16.5 H (3.8-10.6) k/uL Neutrophils # 14.1 H (1.3-7.7) k/uL APTT (22.0-30.0) sec Glucose 100 H (74-99) mg/dL Total Bilirubin 1.4 H (0.2-1.3) mg/dL Total Creatine Kinase 381 H (55-170) U/L CK-MB (CK-2) 6.6 H* (0.0-2.4) ng/mL 08/20/17 08/20/17 08/20/17 Range/Units 04:33 06:31 10:56 WBC (3.8-10.6) k/uL Neutrophils # (1.3-7.7) k/uL APTT 41.3 H (22.0-30.0) sec Glucose (74-99) mg/dL Total Bilirubin (0.2-1.3) mg/dL Total Creatine Kinase 298 H 247 H (55-170) U/L CK-MB (CK-2) 5.5 H* 5.5 H* (0.0-2.4) ng/mL Thrombosis Risk Factor Assmnt - Choose All That Apply Each Risk Factor Represents 2 Points: Age 61-74 years Thrombosis Risk Factor Assessment Total Risk Factor Score: 2 Thrombosis Risk Factor Assessment Level: Low Risk Assessment and Plan Plan: #1 syncope: Cardiology is recommending older monitored and patient was discharged on Holter monitor medical changes as mentioned above second for a his ischemic cardiomyopathy. #2 ischemic cardiac myopathy: Patient is not in CHF exacerbation patient has contacts systolic dysfunction ejection fraction of around 35-40%. Patient is a candidate for AICD. #3 coronary artery disease #4 sinus bradycardia #5 leukocytosis: Reactive without any signs or symptoms of infection. #6 gastroesophageal reflux disease. Patient will receive Holter monitor after that patient will be discharged.
--- NOTE | 2017-08-23 13:19 | HM ---
HOLTER MONITOR REPORT 24-HOUR HOLTER MONITOR Sinus mechanism and sinus bradycardia. Heart rates ranged from 45 to 102 beats per minute to 164 per minute. Nighttime bradycardia likely chronotropic incompetence. IVCD noted. No significant pauses noted. Occasional premature beats. EMERALD / ALICE: [id number] /
== END 2017-08-20 13:15 | disposition home or self-care (01) ==
LOC: EC 22:17 → 3OBS 23:49
PROVIDERS: ADMIT Internal Medicine; ATTEND Internal Medicine
DX: R07.9 Chest pain, unspecified (principal); R55 Syncope and collapse; R42 Dizziness and giddiness; R11.0 Nausea; R32 Unspecified urinary incontinence; R61 Generalized hyperhidrosis; R74.8 Abnormal levels of other serum enzymes; K21.9 Gastro-esophageal reflux disease without esophagitis; E78.2 Mixed hyperlipidemia; I10 Essential (primary) hypertension; D72.829 Elevated white blood cell count, unspecified; R00.1 Bradycardia, unspecified; I25.2 Old myocardial infarction; I25.10 Atherosclerotic heart disease of native coronary artery without angina pectoris; I25.5 Ischemic cardiomyopathy; G43.909 Migraine, unspecified, not intractable, without status migrainosus; K50.90 Crohn's disease, unspecified, without complications; H93.13 Tinnitus, bilateral; Z95.5 Presence of coronary angioplasty implant and graft; Z79.899 Other long term (current) drug therapy; Z79.02 Long term (current) use of antithrombotics/antiplatelets; Z87.891 Personal history of nicotine dependence
CPT/HCPCS: 96376 ×2; 93005 ×2; 96365; 96366; 99291; 36415; 93225; 93226; 85379; 83880; 80061; 80053; 82550 ×2; 82553 ×2; 83735; 84484 ×2; 85025; 85610; 85730 ×2; 71020; G0378 ×2; J1644 ×2; 99285

== ENCOUNTER → 2019-04-29 | Outpatient (CLI) | payer OTHER ==
--- NOTE | 2019-04-29 14:04 | CT ---
EXAMINATION TYPE: CT chest wo con DATE OF EXAM: 04/29/2019 COMPARISON: None. The most recent chest x-ray at this location is dated 08/19/2017 HISTORY: Abnormal chest xray. CT DLP: 391 mGycm, Automated exposure control for dose reduction was used. CONTRAST: Performed injected with 0 mL of Isovue 300. TECHNIQUE: Axial images were obtained at 5 mm thick sections. Reconstructed images are reviewed on [place] computer in the coronal plane. FINDINGS: Portion of the thyroid visualized is normal. No suspicious lung nodules or focal infiltrates are present. Some emphysematous changes present No enlarged mediastinal or hilar adenopathy is evident. The ascending aorta diameter at the level o f the main pulmonary artery is 3.8 cm. The main pulmonary artery diameter at the bifurcation is 2.5 cm. Moderate coronary artery calcification is present. Limited CT sections are obtained through the upper abdomen. Abdomen is essentially unremarkable. IMPRESSIONS: 1. Emphysematous changes. 2. No acute pulmonary process.
== END | disposition home or self-care (01) ==
LOC: RADCTMAIN 13:24
PROVIDERS: ATTEND Physician Assistant
DX: J43.9 Emphysema, unspecified (principal)
CPT/HCPCS: 71250

== ENCOUNTER → 2019-10-26 | Day surgery (SDC) | payer OTHER ==
[2019-10-22 10:27] VITALS: BMI 24.4
[~2019-10-26] MED LIST changes: +ALPRAZolam 0.5 MG TAB PO PRN; -ASPIRIN 325 MG TAB PO ONE; +ASPIRIN 325 MG TAB PO STA; -ATORVASTATIN 80 MG TAB PO ONE; +ATORVASTATIN 80 MG TAB PO STA; -BIVALIRUDIN 250 MG in SODIUM CHLORIDE 0.9% 50 ML IV ONE; -BIVALIRUDIN BOLUS 250 MG/50 ML IV ONE; -HEPARIN SODIUM,PORCINE/D5W PMX 25,000 UNIT in DEXTROSE/WATER 1 500ML.BAG IV ONE; -HYDROmorphone 2 MG/ML 1 ML SYRINGE ONE; -IOHEXOL 350 MG/ML 100 ML BOTTLE INJ ONE; +IOPAMIDOL-370 125ML BTL INJ ONE; +IOPAMIDOL-370 50ML BTL INJ ONE; +LIDOCAINE 1% INJ 10MG/ML (20 ML MDV) SQ ONE; -LIDOCAINE 2% INJ 20 MG/ML (20 ML MDV) ONE; -LIDOCAINE 2% INJ 20 MG/ML SQ ONE; -MIDAZOLAM 2 MG/2 ML VIAL ONE; +NITROGLYCERIN SL TABS 0.4 MG TAB SUBLINGUAL PRN; +RX INFO: IV CONTRAST WAS GIVEN 1 EACH MISC MISCELLANE PRN; +SODIUM CHLORIDE 0.9% 1,000 ML IV SCH; -VERAPAMIL 2.5 MG/ML 2 ML AMP ONE; -diphenhydrAMINE 50 MG/ML 1 ML VIAL IVP ONE; -diphenhydrAMINE 50 MG/ML 1 ML VIAL ONE
[2019-10-26 06:57] VITALS: TEMP 97.8
[2019-10-26 07:53] VITALS: RESP 12
--- NOTE | 2019-10-26 08:40 | P.CARDCATH ---
Date of Procedure: 10/26/19 Preoperative Diagnosis: Chest pain suggestive of crescendo angina and known ischemic heart disease Postoperative Diagnosis: Patent stent in the RCA with critical lesion involving the ostium of the PDA and also moderate disease involving the LAD Procedure(s) Performed: Left heart catheterization with left ventriculography Description of Procedure: HISTORY: This is a 74-year-old gentleman with history of ischemic heart disease with a previous stent placement of the RCA done at [facility]. He came to the heart is with complaints of increasing shortness of breath and dizziness. He is known to have moderate disease in the LAD. In view of his previous history and ongoing symptoms, patient is advised to have a cardiac catheterization for definitive diagnosis. CONSENT:I have discussed the risks, benefits and alternative therapies for the above-mentioned procedure and for both sedation/analgesia as well as necessary blood product administration, if indicated, as they pertain to this patient. The patient has indicated understanding and acceptance of the risks and procedures discussed. [] PROCEDURE: Patient was brought to the lab in a fasting state. Patient was given some IV sedation. The right groin is infiltrated with lidocaine and right femoral artery was entered using Seldinger technique. A 6-Kinyarwanda catheter was left in place and selective coronary arteriography and left ventriculography was performed. Patient tolerated the procedure well. Femoral angiogram was performed and Angio-Seal was applied for hemostasis. No immediate complications were noted and patient was transferred to [facility] in a stable condition Conscious Sedation: Versed 1 mg Fentanyl 25 g Duration 19 minutes HEMODYNAMICS: The aortic pressure is about 110/70. The left ventricle end- diastolic pressure was 10-12. There was no gradient across the aortic valve SELECTIVE CORONARY ARTERIOGRAPHY: LEFT MAIN: This is a long and a free of any significant focal occlusive disease. THE LEFT ANTERIOR DESCENDING CORONARY ARTERY: This is a fairly caliber vessel with a ostial stenosis of the LAD with about 70% stenosis. The lesion appears stable or slightly better than last cardiac catheterization THE LEFT CIRCUMFLEX AND IS CORONARY ARTERY:. This is a moderate caliber vessel giving to small OM branch. The circumflex coronary artery is nondominant and free of occlusive disease THE RIGHT CORONARY ARTERY:. The right coronary artery the right coronary artery is a good caliber vessel giving rise to good-sized PLV and PDA branches. There were multiple stents in the proximal and also distal RCA which seemed patent. The ostium of the PDA branch is jailed and has a 9095% stenosis LEFT VENTRICULOGRAPHY: Showed severe hypokinesis of the inferoapical segment with an ejection fraction probably in the range of 3035% FINAL IMPRESSION: PLAN:. Continues to the medical therapy. The films were reviewed by Dr. JOSIE Bartlett. It is felt that patient should be evaluated by stress test and see if there is any ischemia in the LAD distribution. If ischemia in the LAD distribution is documented, patient will be brought back for stent placement. Otherwise patient will be continued on medical therapy. Patient may also be considered for possible AICD implantation PROGNOSIS: Guarded
[2019-10-26 12:36] VITALS: PULSE 52
[2019-10-26 12:37] VITALS: BP 120/67
== END | disposition home or self-care (01) ==
LOC: CATHCVL 06:37
PROVIDERS: ATTEND Internal Medicine Cardiovascular Disease
DX: I25.110 Atherosclerotic heart disease of native coronary artery with unstable angina pectoris (principal); E78.2 Mixed hyperlipidemia; E78.00 Pure hypercholesterolemia, unspecified; I25.2 Old myocardial infarction; Z95.5 Presence of coronary angioplasty implant and graft; Z82.49 Family history of ischemic heart disease and other diseases of the circulatory system; Z79.82 Long term (current) use of aspirin; Z79.899 Other long term (current) drug therapy
CPT/HCPCS: 93458; C1760; C1769 ×3; C1894; J2250; J2001; Q9967 ×2

== ENCOUNTER 2019-10-30 11:11 | Emergency (ER) | payer OTHER ==
--- NOTE | 2019-10-30 12:52 | ED ---
Extremity Problem HPI - General Chief complaint: Extremity Problem,Nontraumatic Stated complaint: Post op complications, lump on incision Time Seen by Provider: 10/30/19 11:52 Source: patient Mode of arrival: ambulatory Limitations: no limitations - History of Present Illness Initial comments: Patient is a 74-year-old male presenting to emergency Department with complaints of right groin pain has been intermittent for the past few days. Patient states he had a heart catheterization performed on Saturday. Patient states he had a bowel movement this morning and when he was pushing he felt a sharp pain in his right groin. Patient states he is also felt that sharpness throughout this past week when he was pushing a table and doing other things around the house. Patient states he has not had any fever, chills, nausea, vomiting. Patient has not had any bleeding from the site. Patient is concerned for the sharpness of the pain. He did call his doctor who recommended he come in to the ER for possible ultrasound. Patient states he's also noticed some increase in swelling in the area. Patient has no other complaints at this time. Upon arrival to the ER, vital signs are stable. - Related Data Home Medications Medication Instructions Recorded Confirmed Atorvastatin [Lipitor] 40 mg PO HS 08/20/17 10/26/19 Aspirin 81 mg PO DAILY 10/22/19 10/26/19 Calcium Carbonate/Vitamin D3 1 each PO DAILY 10/22/19 10/22/19 [Calcium 600-Vit D3 400 Tablet] Isosorbide Mononitrate ER [Imdur] 30 mg PO DAILY 10/22/19 10/26/19 Loratadine [Claritin] 10 mg PO DAILY PRN 10/22/19 10/22/19 Meloxicam [Mobic] 15 mg PO DAILY PRN 10/22/19 10/22/19 Multivitamins, Thera [Multivitamin 1 tab PO DAILY 10/22/19 10/22/19 (formulary)] Previous Rx's Medication Instructions Recorded Nitroglycerin Sl Tabs [Nitrostat] 0.4 mg SUBLINGUAL Q5M PRN #25 tab 10/26/19 Allergies Allergy/AdvReac Type Severity Reaction Status Date / Time No Known Allergies Allergy Verified 10/30/19 11:31 Review of Systems ROS Statement: Those systems with pertinent positive or pertinent negative responses have been documented in the HPI. ROS Other: All systems not noted in ROS Statement are negative. Past Medical History Past Medical History: Coronary Artery Disease (CAD), Chest Pain / Angina, COPD, CVA/TIA, GERD/Reflux, Hypertension, Myocardial Infarction ([place]), Osteoarthritis (OA) Additional Past Medical History / Comment(s): crohns, hx migraines, sinus congestion, ringing in ears, SOB w/exertion, ?TIA years ago Last Myocardial Infarction Date:: 01/2015 History of Any Multi-Drug Resistant Organisms: None Reported Past Surgical History: Appendectomy, Heart Catheterization, Heart Catheterization With Stent, Tonsillectomy Additional Past Surgical History / Comment(s): kasey cataracts, 5 stents Past Anesthesia/Blood Transfusion Reactions: No Reported Reaction Additional Past Anesthesia/Blood Transfusion Reaction / Comment(s): mother had some problem with anesthesia-not sure what Date of Last Stent Placement:: 04/02/2017 Past Psychological History: Anxiety Smoking Status: Former smoker Past Alcohol Use History: Occasional Past Drug Use History: None Reported - Past Family History Mother Family Medical History: No Reported History General Exam - General Exam Comments Initial Comments: GENERAL: Well-appearing, well-nourished and in no acute distress. HEAD: Atraumatic, normocephalic. EYES: Pupils equal round and reactive to light, extraocular movements intact, sclera anicteric, conjunctiva are normal. ENT: Nares patent, oropharynx clear without exudates. Moist mucous membranes. NECK: Normal range of motion, supple without lymphadenopathy or JVD. LUNGS: Breath sounds clear to auscultation bilaterally and equal. No wheezes rales or rhonchi. HEART: Regular rate and rhythm without murmurs, rubs or gallops. ABDOMEN: Soft, nontender, normoactive bowel sounds. No guarding, no rebound. No masses appreciated. : Right groin shows a healing small wound where heart cath was performed. There is no signs of infection, no active bleeding. The right groin doesn't appear to be mildly swelling when compared to the left. The area is not erythematous or warm to the touch. There is a mild right inguinal lymph node, nonpainful. EXTREMITIES: Normal range of motion, no pitting or edema. No clubbing or cyanosis. PSYCH: Normal mood, normal affect. SKIN: Warm, Dry, normal turgor, no rashes or lesions noted. Limitations: no limitations Course Vital Signs 10/30/19 10/30/19 11:29 13:33 Temperature 97.5 F L 97.8 F Pulse Rate 53 L 59 L Respiratory 16 17 Rate Blood Pressure 101/62 111/59 O2 Sat by Pulse 97 98 Oximetry Medical Decision Making - Medical Decision Making Patient is a 74-year-old male presenting with right inguinal pain. Patient is status post one week of a heart catheterization. Patient's exam is unremarkable. Ultrasound reveals no acute findings, no pseudoaneurysm present. Patient is stable for discharge at this time. Patient will follow up with his executive secretary social welfare for any other concerns. Patient is agreement with this plan of care. Return parameters were discussed with the patient and he verbalized understanding. Case discussed with Dr. Mcadams. Disposition Clinical Impression: Right groin pain Disposition: HOME SELF-CARE Condition: Stable Instructions (If sedation given, give patient instructions): Groin Pain (ED) Additional Instructions: Please return to the Emergency Department if symptoms worsen or any other concerns. Use pressure on the right groin when having to bear down for a bowel movement. Limit activities. Follow-up with PCP. Is patient prescribed a controlled substance at d/c from ED?: No Referrals: [facility],Clinic [Primary Care Provider] - 1-2 days
--- NOTE | 2019-10-30 12:55 | US ---
EXAMINATION TYPE: US lower ext pseudo artery RT DATE OF EXAM: 10/30/2019 COMPARISON: NONE CLINICAL HISTORY: pain, swelling. EXAM PERFORMED: Grayscale and color Doppler duplex imaging performed of the groin, post cardiac matt ter to assess for pseudoaneurysm. SIDE PERFORMED: Right Color and Waveform Doppler performed to assess for the presence of pseudoaneurysm; Is there ultrasound evidence of a pseudoaneurysm: no Is there evidence of AV shunting: no Is there a fluid collection present: no Negative for pseudoaneurysm. Impression: As above. No suspicious outpouching or pseudoaneurysm. No concerning fluid collection or hematoma. Technologist anderson incidental benign right groin subcentimeter lymph node. IMPRESSION:
[2019-10-30 13:35] VITALS: BP 111/59; PULSE 59; RESP 17; TEMP 97.8
== END 2019-10-30 13:35 | disposition home or self-care (01) ==
LOC: EC 11:11
DX: R10.31 Right lower quadrant pain (principal); M79.89 Other specified soft tissue disorders; I25.119 Atherosclerotic heart disease of native coronary artery with unspecified angina pectoris; K21.9 Gastro-esophageal reflux disease without esophagitis; I10 Essential (primary) hypertension; I25.2 Old myocardial infarction; M19.90 Unspecified osteoarthritis, unspecified site; F41.9 Anxiety disorder, unspecified; Z79.82 Long term (current) use of aspirin; Z79.899 Other long term (current) drug therapy; Z86.73 Personal history of transient ischemic attack (TIA), and cerebral infarction without residual deficits; Z95.5 Presence of coronary angioplasty implant and graft; Z87.891 Personal history of nicotine dependence
CPT/HCPCS: 93975; 99283

== ENCOUNTER 2020-12-26 11:36 | Day surgery (SDC) | payer OTHER ==
[~2020-12-26 11:36] MED LIST changes: -ALPRAZolam 0.25 MG TAB PO PRN; -ALPRAZolam 0.5 MG TAB PO PRN; -ASPIRIN 325 MG TAB PO STA; -ATORVASTATIN 80 MG TAB PO STA; -IOPAMIDOL-370 125ML BTL INJ ONE; -IOPAMIDOL-370 50ML BTL INJ ONE; +LACTATED RINGERS 1,000 ML IV SCH; -LIDOCAINE 1% INJ 10MG/ML (20 ML MDV) SQ ONE; -MIDAZOLAM 2 MG/2 ML VIAL IV ONE; -NITROGLYCERIN SL TABS 0.4 MG TAB SUBLINGUAL PRN; -RX INFO: IV CONTRAST WAS GIVEN 1 EACH MISC MISCELLANE PRN; -SODIUM CHLORIDE 0.9% 1,000 ML IV SCH; -SODIUM CHLORIDE 0.9% 1,000 ML in EMPTY BAG 1 BAG IV ONE
[2020-12-26 11:53] VITALS: TEMP 97.8
[2020-12-26] MEDS ORDERED: LIDOCAINE 1% (10MG/ML) FOR IV START INTRADERMA ONE (11:53)
[2020-12-26] MEDS ORDERED: LACTATED RINGERS 1,000 ML IV ONE (11:53)
[2020-12-26] MEDS ORDERED: PROPOFOL 10 MG/ML 20 ML VIAL IV ONE (13:13)
--- NOTE | 2020-12-26 14:02 | P.PCN ---
Date of Procedure: 12/26/20 Description of Procedure: Brief history: Patient is a pleasant 75-year-old male presented for outpatient EGD and colonoscopy for evaluation of GERD and Crohn's disease. He reports a history of Crohn's disease over diagnosed over 10 years ago, with no history of complicated disease including perianal disease, fistulization disease or prior surgeries. Previously he was on mesalamine but states that he stopped the medication as the disease "cleared up". He reports that he is overdue for a colonoscopy. Procedure performed: Esophagogastroduodenoscopy with biopsy Colonoscopy with biopsy Estimated blood loss: Minimal. Preoperative diagnosis: GERD, Crohn's disease [place] [facility] [place]: After informed consent was obtained from the patient was brought into the endoscopy unit and IV sedation was administered by anesthesia under continuous monitoring. Initially upper endoscopy was done. The Olympus GF 190 video endoscope was inserted into the mouth and esophagus intubated without any difficulty and was gradually advanced into the stomach and duodenum and carefully examined. The bulb and second part of the duodenum appeared normal with biopsies. The scope was then withdrawn into the stomach adequately insufflated with air and upon careful examination the antrum and body, cardia and fundus appeared normal, except for some mild scattered erythema in the antrum and body suggestive of mild gastritis with biopsies taken. The scope was then withdrawn into the esophagus. The GE junction was located at 42 cm to the incisors and biopsied. It appeared regular with no erythema erosions or ulcerations. Rest of the esophagus appeared normal. Patient tolerated the procedure well. At this time the patient continued to remain sedation. Initial digital rectal examination was normal. Olympus CF 190 video colonoscope was then inserted into the rectum and gradually advanced to the cecum without any difficulty. Careful examination was performed as the scope was gradually being withdrawn. The prep was good. The cecum, ascending colon, transverse colon, descending colon, sigmoid colon and rectum appeared normal and normal-appearing terminal ileum with random biopsies taken of the terminal ileum, right colon, transverse colon and left colon. A few scattered diverticula noted in the sigmoid colon. Retroflexion was performed in the rectum and no lesions were noted, Moderate internal hemorrhoids. Patient tolerated the procedure well. Impression: 1. Mild gastritis. Biopsies taken of the duodenum, antrum body and GE junction. 2. Normal-appearing colon from rectum to cecum and normal appearing terminal ileum with random biopsies taken of the terminal ileum, right colon, transverse colon and left colon in the setting of history of Crohn's disease. Mild sigmoid diverticulosis. Internal hemorrhoids. Recommendations: Findings of this examination were discussed with the patient as well as His family. Okay to resume diet. Okay to resume medications. Await pathology from biopsies. Recommend repeat colonoscopy in 2 years given patient's history of Crohn's disease for over 10 years.
[2020-12-26 14:09] VITALS: RESP 16
[2020-12-26 14:29] VITALS: BP 106/71; PULSE 51
== END 2020-12-26 15:09 | disposition home or self-care (01) ==
LOC: ORWHC2ENDO 11:36
PROVIDERS: ATTEND Internal Medicine
DX: Z12.11 Encounter for screening for malignant neoplasm of colon (principal); K50.10 Crohn's disease of large intestine without complications; K31.9 Disease of stomach and duodenum, unspecified; K57.30 Diverticulosis of large intestine without perforation or abscess without bleeding; K64.4 Residual hemorrhoidal skin tags; K29.70 Gastritis, unspecified, without bleeding; K21.9 Gastro-esophageal reflux disease without esophagitis; I25.2 Old myocardial infarction; I25.10 Atherosclerotic heart disease of native coronary artery without angina pectoris; J44.9 Chronic obstructive pulmonary disease, unspecified; Z87.891 Personal history of nicotine dependence; Z79.899 Other long term (current) drug therapy; Z79.82 Long term (current) use of aspirin; Z79.1 Long term (current) use of non-steroidal anti-inflammatories (NSAID); Z90.49 Acquired absence of other specified parts of digestive tract; Z95.5 Presence of coronary angioplasty implant and graft; Z90.89 Acquired absence of other organs; Z98.41 Cataract extraction status, right eye; Z98.42 Cataract extraction status, left eye; Z97.2 Presence of dental prosthetic device (complete) (partial); Z86.73 Personal history of transient ischemic attack (TIA), and cerebral infarction without residual deficits
CPT/HCPCS: 45380; 43239; 88305; J2704

== ENCOUNTER 2021-02-27 23:20 | Emergency (ER) | payer OTHER ==
[2021-02-27 23:43] VITALS: RESP 18
[2021-02-28 00:53] LABS: Basophils % (A) 0 %; Eosinophils # (A) 0.3 k/uL (0-0.7); Eosinophils % (A) 3 %; HCT 39.3 % (39.0-53.0); HGB 13.9 gm/dL (13.0-17.5); Lymphocytes # (A) 2.5 k/uL (1.0-4.8); Lymphocytes % (A) 33 %; MCH 34.3 pg (25.0-35.0); MCHC 35.4 g/dL (31.0-37.0); MCV 96.9 fL (80.0-100.0); Mean Platelet Volume 7.3; Monocytes # (A) 0.5 k/uL (0-1.0); Monocytes % (A) 7 %; Neutrophils # (A) 4.1 k/uL (1.3-7.7); Neutrophils % (A) 55 %; Platelet Count 155 k/uL (150-450); RBC 4.06 m/uL (4.30-5.90); RDW 13.1 % (11.5-15.5); WBC 7.5 k/uL (3.8-10.6)
[2021-02-28 01:18] LABS: ALT 31 U/L (4-49); AST 52 U/L (17-59); African American GFR (CKD) >90 (>60 ml/min/1.73 sqM); Albumin 3.9 g/dL (3.5-5.0); Alkaline Phosphatase 104 U/L (38-126); Anion Gap 9 mmol/L; Blood Urea Nitrogen 22 mg/dL (9-20); Calcium 9.1 mg/dL (8.4-10.2); Carbon Dioxide 25 mmol/L (22-30); Chloride 104 mmol/L (98-107); Glucose 124 mg/dL (74-99); Non-African American GFR(CKD) 85 (>60 ml/min/1.73 sqM); Potassium 4.1 mmol/L (3.5-5.1); Sodium 138 mmol/L (137-145); Total Bilirubin 0.9 mg/dL (0.2-1.3); Total Protein 7.1 g/dL (6.3-8.2)
--- NOTE | 2021-02-28 01:53 | ED ---
General Adult HPI - General Chief complaint: Recheck/Abnormal Lab/Rx Stated complaint: seny by pcp Time Seen by Provider: 02/27/21 23:46 Source: patient Mode of arrival: wheelchair Limitations: no limitations - History of Present Illness Initial comments: 75-year-old male with a computed past medical history presents to the emergency room for a chief complaint of abnormal labs. Patient reports he was called by the [facility] at 10:30 PM stating that his potassium was 5.9 and that he needed to go to the ER. Patient reports this was a normal checkup lab draw. Patient denies any symptoms. Patient denies taking potassium.Patient has no other compl aints at this time including shortness of breath, chest pain, abdominal pain, nausea or vomiting, headache, or visual changes. - Related Data Home Medications Medication Instructions Recorded Confirmed Atorvastatin [Lipitor] 40 mg PO HS 08/20/17 12/23/20 Aspirin 81 mg PO DAILY 10/22/19 12/23/20 Calcium Carbonate/Vitamin D3 1 each PO DAILY 10/22/19 12/23/20 [Calcium 600-Vit D3 10 mcg (400 Iu)] Isosorbide Mononitrate ER [Imdur] 30 mg PO DAILY 10/22/19 12/23/20 Loratadine [Claritin] 10 mg PO DAILY PRN 10/22/19 12/23/20 Meloxicam [Mobic] 15 mg PO DAILY PRN 10/22/19 12/23/20 Ascorbic Acid [Vitamin C] 1 tab PO DAILY 12/23/20 12/23/20 Calcium Carbonate [Calcium] 1 tab PO DAILY 12/23/20 12/23/20 Vitamin B Complex 1 tab PO DAILY 12/23/20 12/23/20 Previous Rx's Medication Instructions Recorded Nitroglycerin Sl Tabs [Nitrostat] 0.4 mg SUBLINGUAL Q5M PRN #25 tab 10/26/19 Allergies Allergy/AdvReac Type Severity Reaction Status Date / Time No Known Allergies Allergy Verified 02/27/21 23:43 Review of Systems ROS Statement: Those systems with pertinent positive or pertinent negative responses have been documented in the HPI. ROS Other: All systems not noted in ROS Statement are negative. Past Medical History Past Medical History: Coronary Artery Disease (CAD), Chest Pain / Angina, COPD, CVA/TIA, GERD/Reflux, Hypertension, Myocardial Infarction ([place]), Osteoarthritis (OA) Additional Past Medical History / Comment(s): crohns, hx migraines, sinus congestion, ringing in ears, SOB w/exertion, ?TIA years ago Last Myocardial Infarction Date:: 01/2015 History of Any Multi-Drug Resistant Organisms: None Reported Past Surgical History: Appendectomy, Heart Catheterization, Heart Catheterization With Stent, Tonsillectomy Additional Past Surgical History / Comment(s): kasey cataracts, 5 stents Past Anesthesia/Blood Transfusion Reactions: No Reported Reaction Additional Past Anesthesia/Blood Transfusion Reaction / Comment(s): mother had some problem with anesthesia-not sure what Date of Last Stent Placement:: 04/02/2017 Past Psychological History: Anxiety Smoking Status: Former smoker Past Alcohol Use History: Occasional Past Drug Use History: Marijuana - Past Family History Mother Family Medical History: No Reported History General Exam Limitations: no limitations General appearance: alert, in no apparent distress Head exam: Present: atraumatic, normocephalic, normal inspection Eye exam: Present: normal appearance, PERRL, EOMI. Absent: scleral icterus, conjunctival injection, periorbital swelling ENT exam: Present: normal exam, mucous membranes moist Neck exam: Present: normal inspection. Absent: tenderness, meningismus, lymphadenopathy Respiratory exam: Present: normal lung sounds bilaterally. Absent: respiratory distress, wheezes, rales, rhonchi, stridor Cardiovascular Exam: Present: regular rate, normal rhythm, normal heart sounds. Absent: systolic murmur, diastolic murmur, rubs, gallop, clicks Course Vital Signs 02/27/21 02/28/21 02/28/21 23:38 00:43 01:00 Temperature 97.7 F Pulse Rate 64 63 59 L Respiratory 18 18 18 Rate Blood Pressure 129/77 135/69 111/63 O2 Sat by Pulse 97 97 97 Oximetry Medical Decision Making - Medical Decision Making Vitals are stable. Patient is well-appearing. CBC CMP unremarkable. Potassium is 4.1. EKG shows a normal sinus rhythm with a right bundle branch block is consistent with previous EKGs. Earlier laboratory evaluation likely showed hemolyzed potassium. Patient is stable for discharge home. He will return for any worsening symptoms. - Lab Data Result diagrams: 02/28/21 00:26 02/28/21 00:26 Lab Results 02/28/21 02/28/21 Range/Units 00:26 00:26 WBC 7.5 (3.8-10.6) k/uL RBC 4.06 L (4.30-5.90) m/uL Hgb 13.9 (13.0-17.5) gm/dL Hct 39.3 (39.0-53.0) % MCV 96.9 (80.0-100.0) fL MCH 34.3 (25.0-35.0) pg MCHC 35.4 (31.0-37.0) g/dL RDW 13.1 (11.5-15.5) % Plt Count 155 (150-450) k/uL MPV 7.3 Neutrophils % 55 % Lymphocytes % 33 % Monocytes % 7 % Eosinophils % 3 % Basophils % 0 % Neutrophils # 4.1 (1.3-7.7) k/uL Lymphocytes # 2.5 (1.0-4.8) k/uL Monocytes # 0.5 (0-1.0) k/uL Eosinophils # 0.3 (0-0.7) k/uL Basophils # 0.0 (0-0.2) k/uL Sodium 138 (137-145) mmol/L Potassium 4.1 (3.5-5.1) mmol/L Chloride 104 (98-107) mmol/L Carbon Dioxide 25 (22-30) mmol/L Anion Gap 9 mmol/L BUN 22 H (9-20) mg/dL Creatinine 0.82 (0.66-1.25) mg/dL Est GFR (CKD-EPI)AfAm >90 (>60 ml/min/1.73 sqM) Est GFR (CKD-EPI)NonAf 85 (>60 ml/min/1.73 sqM) Glucose 124 H (74-99) mg/dL Calcium 9.1 (8.4-10.2) mg/dL Total Bilirubin 0.9 (0.2-1.3) mg/dL AST 52 (17-59) U/L ALT 31 (4-49) U/L Alkaline Phosphatase 104 (38-126) U/L Total Protein 7.1 (6.3-8.2) g/dL Albumin 3.9 (3.5-5.0) g/dL Disposition Clinical Impression: Laboratory test Narrative: normal potassium 4.1 Disposition: HOME SELF-CARE Condition: Good Instructions (If sedation given, give patient instructions): Normal Exam (ED) Additional Instructions: Please follow up with primary care in 1-2 days. Return to the emergency room for any worsening symptoms. Is patient prescribed a controlled substance at d/c from ED?: No Referrals: [facility],Clinic [Primary Care Provider] - 1-2 days Time of Disposition: 01:52
[2021-02-28 02:19] VITALS: BP 119/66; PULSE 58; TEMP 97.8
== END 2021-02-28 02:19 | disposition home or self-care (01) ==
LOC: EC 23:20
DX: Z03.89 Encounter for observation for other suspected diseases and conditions ruled out (principal); I45.10 Unspecified right bundle-branch block; I25.119 Atherosclerotic heart disease of native coronary artery with unspecified angina pectoris; K21.9 Gastro-esophageal reflux disease without esophagitis; I10 Essential (primary) hypertension; I25.2 Old myocardial infarction; M19.90 Unspecified osteoarthritis, unspecified site; F41.9 Anxiety disorder, unspecified; Z79.82 Long term (current) use of aspirin; Z79.1 Long term (current) use of non-steroidal anti-inflammatories (NSAID); Z79.899 Other long term (current) drug therapy; Z87.891 Personal history of nicotine dependence; Z95.5 Presence of coronary angioplasty implant and graft
CPT/HCPCS: 36415; 80053; 85025; 93005; 99285